=== PATIENT | male | born 1965 | race Caucasian/White ===

== ENCOUNTER 2019-02-25 11:06 | Inpatient (IN) | payer OTHER ==
[~2019-02-25] VITALS: Ht 185.4 cm; Wt 82.6 kg
[2019-02-25] VITALS (20 sets, daily range): BP systolic 127–173; BP diastolic 46–128
--- NOTE | 2019-02-25 11:16 | NUR ---
PT STATING HIS LAST ALCOHOLIC DRINK WAS 1800 YESTERDAY.
[2019-02-25] MEDS ORDERED: COZAAR 25 MG TA25 M1 PO (11:17)
[2019-02-25] MEDS ORDERED: NORVASC 2.5 MG2.5 M1 PO (11:18)
[2019-02-25] MEDS ORDERED: PROTONIX 20 MG20 MG PO (11:18)
[2019-02-25 11:45] LABS: ABSOLUTE BASOPHILS 0.1 thou/uL (0.0-0.2); ABSOLUTE LYMPHOCYTES 0.8 thou/uL (0.8-5.3); ABSOLUTE MONOCYTES 0.7 thou/uL (0.0-1.2); ABSOLUTE NEUTROPHILS 8.9 thou/uL (1.6-8.1); BASOPHILS 0.8 %; HEMATOCRIT 45.6 % (42.0-52.0); HEMOGLOBIN 16.1 gm/dL (14.0-18.0); LYMPHOCYTES 7.8 %; MCH 32.6 pg (26.0-34.0); MCHC 35.3 g/dL (28.0-37.0); MCV 92.4 fL (80.0-100.0); MPV 6.8 fl. (7.2-11.1); NUCLEATED RBCS 0 /100WBC; PLATELET COUNT* 405 thou/uL (150-400); POLYS 84.4 %; RBC 4.94 mil/uL (4.50-6.00); RDW-CV 16.5 % (10.5-14.5); WBC 10.6 thou/uL (4.0-11.0)
[2019-02-25 11:55] LABS: CALCIUM 9.4 mg/dL (8.5-10.1); POTASSIUM 4.1 mmol/L (3.5-5.1)
[2019-02-25 12:09] LABS: ALBUMIN 4.9 g/dL (3.4-5.0); CK-MB MASS 0.8 ng/mL (<0.5-3.6); MAGNESIUM 1.3 mg/dL (1.8-2.4); TOTAL BILIRUBIN 0.5 mg/dL (<0.1-1.0); TOTAL PROTEIN 8.1 g/dL (6.4-8.2)
[2019-02-25 12:12] LABS: APTT 29.9 Seconds (25.0-31.3); INR 1.7; PROTIME 16.8 Seconds (9.20-11.50)
[2019-02-25 15:05] LABS: URINE BILIRUBIN NEGATIVE (Negative); URINE BLOOD TRACE (Negative); URINE CLARITY CLEAR; URINE COLOR YELLOW; URINE GLUCOSE-RANDOM NEGATIVE (Negative); URINE KETONES 1+ (Negative); URINE LEUKOCYTES-REFLEX NEGATIVE (Negative); URINE NITRITE-REFLEX NEGATIVE (Negative); URINE PROTEIN 2+ (Negative); URINE SPECIFIC GRAVITY 1.025 (1.005-1.030); URINE UROBILINOGEN 0.2 E.U./dl (0.2-1.0)
[2019-02-25 15:15] LABS: AMP/METHAMP Negative (Negative); BARBITURATES Negative (Negative); BENZODIAZEPINES Negative (Negative); COCAINE Negative (Negative); METHADONE Negative (Negative); OPIATES Negative (Negative); PCP Negative (Negative); THC Negative (Negative)
[2019-02-25 15:21] LABS: SQUAMOUS 0-3 Few /LPF (0-3)
[2019-02-25 15:22] LABS: BACTERIA-REFLEX 1-9 Few /HPF (None Seen); CRYSTALS None Seen /LPF (None Seen); HYALINE CASTS 0-3 Few /LPF (None Seen); URINE RBC 0-2 Rare /HPF (0-2); URINE WBC-REFLEX 0-5 Rare /HPF (0-5)
[2019-02-25] MEDS ORDERED: PROZAC40 MG PO (15:29)
[2019-02-25] MEDS ORDERED: SEROQUEL 100 M100 M1 PO (15:29)
--- NOTE | 2019-02-25 15:32 | NUR ---
RECEIVED REPORT AND ASSUMED CARE OF PT @ 7713.PT IS A/O X4,PT IS TACHYCARDIC ON THE MONITOR WITH HTN.PT ON 2L O2 NC FOR COMFORT.NO C/O PAIN.CIWA ASSESSMENT COMPLETED WITH SCORE OF 10.CIWA PROTOCOL FOLLOWED.SEIZURE PRECAUTIONS IN PLACE.MAGNESIUM REPLACED.UA SENT.IV SECURE AND PATENT WITH IVF INFUSING PER ORDERS.PT INFORMED OF PLAN OF CARE AND COMMUNICATES UNDERSTANDING.HOURLY ROUNDING COMPLETED FOR PT SAQFETY.CALL LIGHT AND FALL PRECAUTIONS IN PLACE.WILL CONTINUE TO MONITOR FOR DURATION OF SHIFT.
--- NOTE | 2019-02-25 16:10 | EKG ---
[place] [address] ELECTROCARDIOGRAM REPORT Name: FENG STANTON Room: [address] ADM IN .R.#: [id number] Admission: 02/25/19 Attend Phys: Nivia Rocha MD Discharge: Date of : 69 Report #: [id number] THIS REPORT FOR: //name// [facility] ED Test Date: 2019-02-25 Test Time: 11:10:40 Pat Name: FENG STANTON Department: Room: [facility] Gender: M Personalized Living Manager: : [id number] Requested By: Kolby Nieto Order Number: [id number] MD: Alex Medina Measurements Intervals [place] Rate: 137 P: 54 ME: 132 QRS: 44 QRSD: 84 T: 39 QT: 301 QTc: 455 Interpretive Statements Sinus tachycardia Baseline wander in lead(s) II,III,aVF,V2,V4,V6 No previous ECG available for comparison Electronically Signed On 02-25-2019 16:09:37 OVEN LOADER by Alex Medina [email or web address] <ELECTRONICALLY SIGNED> By: Alex Medina MD, [facility] 02/25/19 1609 1110 1110 Alex Medina MD, FAC /EPI
[2019-02-25 18:06] LABS: CALCIUM 8.8 mg/dL (8.5-10.1); PHOSPHORUS* 3.2 mg/dL (2.5-4.9)
[2019-02-26] VITALS (25 sets, daily range): BP systolic 113–170; BP diastolic 77–139
[2019-02-26 04:26] LABS: CALCIUM 8.5 mg/dL (8.5-10.1); CREATININE 0.8 mg/dL (0.6-1.3); MAGNESIUM 1.7 mg/dL (1.8-2.4); POTASSIUM 3.4 mmol/L (3.5-5.1); TOTAL BILIRUBIN 0.7 mg/dL (<0.1-1.0); TOTAL PROTEIN 6.4 g/dL (6.4-8.2)
[2019-02-26 04:37] LABS: HEMATOCRIT 39.1 % (42.0-52.0); MCH 32.5 pg (26.0-34.0); MCV 92.9 fL (80.0-100.0); MPV 7.5 fl. (7.2-11.1); RBC 4.21 mil/uL (4.50-6.00); RDW-CV 16.3 % (10.5-14.5); WBC 8.8 thou/uL (4.0-11.0)
[2019-02-26 05:05] LABS: HEMOGLOBIN 13.7 gm/dL (14.0-18.0)
--- NOTE | 2019-02-26 07:12 | NUR ---
ASSESSMENTS CHARTED. PATIENT'S CIWA SCORE MAXED AT 10 DURING SHIFT. PATIENT IS ALERT AND ORIENTED, TAKING ORAL MEDICATIONS WITHOUT DIFFICULTY. PATIENT HAS BEEN NPO SINCE MIDNIGHT FOR AN ABDOMINAL ULTRASOUND IN THE AM. PATIENT REQUIRED ADDITIONAL DOSES OF ATIVAN TO MANAGE WITHDRAWAL SYMPTOMS THROUGHOUT THE NIGHT. NEW IV PLACED IN L FOREARM. PATIENT HAS SLEPT FOR ABOUT HALF THE SHIFT AND SHOWS NO SIGNS OF SEIZURE ACTIVITY. SEIZURE PRECAUTIONS IN PLACE. WCTM.
--- NOTE | 2019-02-26 11:00 | NUR ---
PT.SOMEWHAT SHAKY. WANTNG SOME ICE CHIPS IF POSSIBLE. WILL INFORM RN. PT.SAID HE AND ROOMATE WERE CELEBRATING LEATHA AND WERE DRINKING STRAIGHT VODKA. HE HAD NOT DRANK ALCOHOL IN A LONG TIME PRIOR TO THIS. ENDED UP IN THE HOSPITAL. STATED HE LIVES WITH A ROOMATE. HE HELPS PAY THE RENT. HE IS BETWEEN JOBS RIGHT NOW. USUALLY WORKS AN LIBRARY CIRCULATION CLERK. GAVE HIM RESOURCES FOR UNINSURED PTS AND ALCOHOL DEPENDENCE. HE SAID HE IS NOT PLANNING ON DRINKING AGAIN BECAUSE HE DOESN'T WANT TO FEEL THIS BAD AGAIN.
--- NOTE | 2019-02-26 13:39 | 2DMMODE ---
[place] [address] 2 D/M-MODE ECHOCARDIOGRAM Name: FENG STANTON Room: [address] ADM IN .R.#: [id number] Admission: 02/25/19 Attend Phys: Nivia Rocha, Discharge: Date of : 69 Date of Service: 02/26/19 1338 Report #: [id number] THIS REPORT FOR: //name// APPROVED REPORT Study performed: 02/26/2019 08:59:20 EXAM: Comprehensive 2D, Doppler, and color-flow Echocardiogram Patient Location: Bedside BSA: 2.04 HR: 92 bpm BP: 147/91 mmHg Other Information Study Quality: Fair Indications Chest Pain 2D Dimensions IVSd: 9.22 (7-11mm) LVOT Diam: 16.42 (18-24mm) LVDd: 48.90 mm PWd: 11.42 (7-11mm) Ascending Ao: 34.61 (22-36mm) LVDs: 31.17 (25-40mm) Aortic Root: 30.58 mm Volumes Left Atrial Volume (Systole) LA ESV Index: 14.20 mL/m2 Aortic Valve AoV Peak Venancio.: 0.82 m/s AO Peak Gr.: 2.67 mmHg LVOT Max P.42 mmHg AO Mean Gr.: 1.66 mmHg LVOT Mean P.80 mmHg LVOT Max V: 0.60 m/s AO V2 VTI: 13.83 cm LVOT Mean V: 0.42 m/s JAISON (VTI): 1.87 cm2 LVOT V1 VTI: 12.19 cm Mitral Valve E/A Ratio: 0.71 MV Decel. Time: 244.49 ms MV E Max Venancio.: 0.47 m/s MV PHT: 70.90 ms MVA (PHT): 3.10 [place]2 [place] [address] 2 D/M-MODE ECHOCARDIOGRAM Name: FENG STANTON Room: [address] IN .R.#: [id number] Admission: 02/25/19 Attend Phys: Nivia Rocha, Discharge: Date of : 69 Date of Service: 02/26/19 1338 Report #: [id number] TDI E/Lateral E': 4.27 E/Medial E': 6.71 Medial E' Venancio.: 0.07 m/s Lateral E' Venancio.: 0.11 m/s Pulmonary Valve PV Peak Venancio.: 0.73 m/s PV Peak Gr.: 2.13 mmHg Tricuspid Valve RAP Estimate: 5.00 mmHg TR Peak Gr.: 22.03 mmHg RVSP: 27.03 mmHg PA Pressure: 27.03 mmHg Left Ventricle The left ventricle is normal size. There is normal LV segmental wall motion. There is normal left ventricular wall thickness. Left ventricular systolic function is normal. LVEF is 55-60%. Grade I - abnormal relaxation pattern. Right Ventricle The right ventricle is normal size. The right ventricular systolic function is normal. Atria The left atrium size is normal. The right atrium size is normal. Aortic Valve The aortic valve is normal in structure. No aortic regurgitation is present. There is no aortic valvular stenosis. Mitral Valve The mitral valve is normal in structure. Trace mitral regurgitation. No evidence of mitral valve stenosis. Tricuspid Valve The tricuspid valve is normal in structure. Trace tricuspid regurgitation. No pulmonary hypertension. Pulmonic Valve The pulmonary valve is normal in structure. There is no pulmonic valvular regurgitation. Great Vessels The aortic root is normal in size. IVC [place] [address] 2 D/M-MODE ECHOCARDIOGRAM Name: FENG STANTON Room: [address] IN [facility]#: [id number] Admission: 02/25/19 Attend Phys: Nivia Rocha, Discharge: Date of : 69 Date of Service: 02/26/19 1338 Report #: [id number] collapses >50% with inspiration. Pericardium There is no pericardial effusion. <Conclusion> The left ventricle is normal size. There is normal left ventricular wall thickness. Left ventricular systolic function is normal. LVEF is 55-60%. Grade I - abnormal relaxation pattern. Trace mitral regurgitation. Trace tricuspid regurgitation. No pulmonary hypertension. IVC is normal in size and collapses >50% with inspiration. <ELECTRONICALLY SIGNED> By: Scott Núñez MD, FACC 02/26/19 1338 1338 1338 Scott Núñez MD, FACC /INF
[2019-02-26 16:11] LABS: HEPATITIS B SURFACE AG Negative (Negative)
--- NOTE | 2019-02-26 17:58 | NUR ---
this software writer assumed care of pt at 0700. pt here for etoh withdrawal ciwa have ranged between 10-12. pt c/p of not feeling well on and off prn and scheduled ativan administered to help with withdrawals s/s. pt htn losartan changed from daily to bid and prn for hydralazine q6hr ordered. pt up tp commode [id number] stated he was more steady on his feet than yesterday resting in bed
[2019-02-27] VITALS (16 sets, daily range): BP systolic 110–148; BP diastolic 75–112
[2019-02-27 04:26] LABS: HEMATOCRIT 43.8 % (42.0-52.0); HEMOGLOBIN 15.2 gm/dL (14.0-18.0); MCH 32.6 pg (26.0-34.0); MCHC 34.7 g/dL (28.0-37.0); MCV 93.8 fL (80.0-100.0); MPV 7.7 fl. (7.2-11.1); RBC 4.66 mil/uL (4.50-6.00); RDW-CV 15.8 % (10.5-14.5); WBC 8.4 thou/uL (4.0-11.0)
[2019-02-27 05:01] LABS: CALCIUM 8.8 mg/dL (8.5-10.1); CREATININE 0.7 mg/dL (0.6-1.3); MAGNESIUM 1.8 mg/dL (1.8-2.4); PHOSPHORUS* 4.1 mg/dL (2.5-4.9); POTASSIUM 3.5 mmol/L (3.5-5.1)
--- NOTE | 2019-02-27 08:01 | NUR ---
ASSESSMENTS CHARTED. PATIENT SLEPT FOR THE MAJORITY OF THE SHIFT. CIWA SCORES BETWEEN 10 AND 12, MOSTLY TREMORS AND ANXIETY. PATIENT DENIES ANY HALLUCINATIONS AND REMAINS ORIENTED. NO SIGNIFICANT EVENTS THIS SHIFT. WCTM.
[2019-02-28] VITALS (12 sets, daily range): BP systolic 116–150; BP diastolic 66–106
--- NOTE | 2019-02-28 05:24 | NUR ---
PT. PROGRESSING TOWARDS GOALS. CIWAS CHARTED. PT. C/O TREMORS, STATED HE "REALLY WANTS A SHOWER" BUT REFUSED BED BATH. ATIVAN GIVEN PER SCHEDULED AND PRN ORDERS. IVF DC'D. 2 IV SITES SALINE LOCKED. ROOM AIR. BED ALARM IN PLACE, WILL CONTINUE TO MONITOR.
[2019-02-28] MEDS ORDERED: PNV 29-1 TABLE1 EACH PO (13:31)
[2019-02-28] MEDS ORDERED: FOLIC ACID1 MG PO (13:32)
--- NOTE | 2019-02-28 13:44 | NUR ---
PATIENT CALLED OUT, STATED HIS DAD WAS GOING TO ER IN [place], POSSIBLE HEART ATTACK. PATIENT STATED HE WANTED TO LEAVE TO GO BE WITH HIS DAD. EXPLAINED TO PATIENT THAT I WAS CONCERNED WITH HIS TREMORS AND ASKED FOR A FEW MINS TO CALL DR WHARTON. PATIENT STATED HE HAD HIS TRUCK IN THE PARKING LOT AND NEEDED TO DRIVE HIMSELF. DR WHARTON NOTIFIED, OK FOR PATIENT TO D/C WITH PRENTAL VITAMIN AND FOLIC ACID. OK FOR PATIENT TO DRIVE AT THIS TIME PER PHYSICIAN. GENERAL DISCHARGE INSTRUCTIONS ORDERED PER DIO. D/C PACKET GIVEN TO PATIENT. ALL QUESTIONS ANSWERED. PATIENT WALKED TO PARKING LOT WITH ALL BELONGINGS AND D/C INSTRUCTIONS.
== END 2019-02-28 13:42 | disposition home or self-care (01) | DRG 897 ==
LOC: M.ERS 11:06 → M.TBA-ER 13:06 → M.ICU 13:06
PROVIDERS: Emergency Medicine; ADMIT Internal Medicine
DX: F10.239 Alcohol dependence with withdrawal, unspecified (principal); I10 Essential (primary) hypertension; K75.9 Inflammatory liver disease, unspecified; R07.9 Chest pain, unspecified; Z86.711 Personal history of pulmonary embolism; Z79.01 Long term (current) use of anticoagulants; Z88.6 Allergy status to analgesic agent; Z71.41 Alcohol abuse counseling and surveillance of alcoholic; Z82.49 Family history of ischemic heart disease and other diseases of the circulatory system